=== PATIENT | male | born 1980 | race Caucasian/White ===

== ENCOUNTER 2022-01-31 21:08 | Emergency (ER) | payer MEDICAID ==
[2022-01-31] MEDS ORDERED: oxyCODONE 5 MG Tab PO ONE (21:48)
[2022-01-31] MEDS ORDERED: Iopamidol 755 Mg/ML 75 ML Bottle IVPUSH ONE (22:41)
[2022-01-31] MEDS ORDERED: Sodium Chloride 0.9% 50 ML IV SCH (22:45)
[2022-01-31] MEDS ORDERED: HYDROmorphone 1 MG/ML Syringe IVPUSH ONE (22:46)
[2022-01-31] MEDS ORDERED: Ondansetron 4 MG/2 ML SDV IVPUSH ONE (23:01)
[2022-01-31 23:07] LABS: ANION GAP 14.7 mmol/L (5-15); CHLORIDE,CL 104 mmol/L (98-107); SODIUM,NA 142 mmol/L (136-145)
[2022-01-31 23:08] LABS: ESTIMATED GFR 103 mL/min (>=60)
[2022-01-31] MEDS ORDERED: Acetaminophen/oxyCODONE 325-5 MG Tab PO ONE (23:28)
== END 2022-01-31 23:49 | disposition home or self-care (01) ==
LOC: SUPCPDRO 21:08 → KA.ED 21:08
DX: R10.12 Left upper quadrant pain (principal); Z98.890 Other specified postprocedural states
CPT/HCPCS: 36415; 74177; 80048; 85025; 96374; 96375; 99284; 99284-25; A9270-GY; J1170; J2405; Q9967

== ENCOUNTER 2022-09-06 15:13 | Emergency (ER) | payer MEDICAID ==
[2022-09-06] MEDS ORDERED: Sodium Chloride 0.9% 10 ML Syringe FLUSH PRN (15:43)
[2022-09-06] MEDS ORDERED: Nitroglycerin 2% Oint 1 GM UD Packet TOP ONE (15:46)
[2022-09-06] MEDS ORDERED: Aspirin 81 MG Tab.Chew PO ONE (15:46)
[2022-09-06 16:01] LABS: ANION GAP 9.9 mmol/L (5-15)
== END 2022-09-06 18:05 | disposition home or self-care (01) ==
LOC: KA.ED 15:13
DX: I16.0 Hypertensive urgency (principal); I10 Essential (primary) hypertension; E66.9 Obesity, unspecified; Z68.36 Body mass index [BMI] 36.0-36.9, adult; Z79.899 Other long term (current) drug therapy
CPT/HCPCS: 36415; 71046; 80053; 84484; 85025; 99285; A9270; 93010; 99284

== ENCOUNTER 2022-09-09 18:00 | Emergency (ER) | payer MEDICAID ==
[2022-09-09] MEDS ORDERED: Sodium Chloride 0.9% 10 ML Syringe FLUSH PRN (18:16)
[2022-09-09] MEDS: Labetalol 100 MG/20 ML MDV IVPUSH ONE (18:37)
== END 2022-09-09 19:15 | disposition home or self-care (01) ==
LOC: KA.ED 18:00
DX: I16.0 Hypertensive urgency (principal); E66.9 Obesity, unspecified; Z68.36 Body mass index [BMI] 36.0-36.9, adult; Z79.899 Other long term (current) drug therapy
CPT/HCPCS: 80053; 84484; 85025; 93010; 96374; 99283-25; 99284; J3490

== ENCOUNTER 2022-11-14 07:42 | Emergency (ER) | payer MEDICAID ==
[2022-11-14 08:13] LABS: BASOPHILS ABSOLUTE AUTO 0.01 10^3/uL (0.00-0.10); BASOPHILS PERCENT AUTO 0.1 % (0.0-1.0); EOSINOPHILS ABSOLUTE AUTO 0.11 10^3/uL (0.10-0.30); EOSINOPHILS PERCENT AUTO 0.9 % (1.0-3.0); HEMATOCRIT 50.1 % (40.0-52.0); HEMOGLOBIN 16.9 g/dL (13.0-17.0); IMMATURE GRAN ABSOLUTE AUTO 0.07 10^3/uL (0.00-0.50); IMMATURE GRAN PERCENT AUTO 0.6 % (0.0-5.0); LYMPHOCYTES ABSOLUTE AUTO 2.26 10^3/uL (1.00-4.00); LYMPHOCYTES PERCENT AUTO 18.7 % (20.0-40.0); MEAN CORPUSCULAR HEMOGLOBIN 29.1 pg (27.0-31.0); MEAN CORPUSCULAR HGB CONC 33.7 g/dL (32.0-36.0); MEAN CORPUSCULAR VOLUME 86.4 fL (82.0-92.0); MEAN PLATELET VOLUME 10.9 fL (7.4-10.4); MONOCYTES ABSOLUTE AUTO 0.92 10^3/uL (0.10-0.80); MONOCYTES PERCENT AUTO 7.6 % (2.0-8.0); NEUTROPHILS ABSOLUTE AUTO 8.74 10^3/uL (2.50-7.00); NEUTROPHILS PERCENT AUTO 72.1 % (50.0-70.0); PLATELET COUNT,PLT 204 10^3/uL (150-400); RED CELL DISTRIBUTION WIDTH 12.9 % (11.5-14.5); WHITE BLOOD CELL COUNT,WBC 12.11 10^3/uL (5.00-10.00)
[2022-11-14] MEDS: Sodium Chloride 0.9% 1,000 ML IV ONE (08:15)
[2022-11-14 08:23] LABS: APPEARANCE,URINE CLEAR (CLEAR); BILIRUBIN,URINE NEGATIVE (NEGATIVE); COLOR,URINE YELLOW (YELLOW); GLUCOSE,URINE NEGATIVE (NEGATIVE); KETONES,URINE NEGATIVE (NEGATIVE); LEUKOCYTE ESTERASE,URINE NEGATIVE (NEGATIVE); NITRITE,URINE NEGATIVE (NEGATIVE); OCCULT BLOOD,URINE NEGATIVE (NEGATIVE); PH,URINE 5.5 (5.0-9.0); PROTEIN,URINE NEGATIVE (NEGATIVE); UROBILINOGEN,URINE 0.2 E.U./dL (0.2-1.0)
[2022-11-14 08:29] LABS: ALBUMIN 3.77 g/dL (3.40-5.00); ANION GAP 13.2 mmol/L (5-15); BILIRUBIN TOTAL 0.7 mg/dL (0.2-1.0); CALCIUM 8.9 mg/dL (8.7-10.3); CREATININE 0.74 mg/dL (0.51-1.17); EST CRCL DRUG DOSING (CG) 106.67 mL/min; POTASSIUM,K 4.2 mmol/L (3.5-5.1); PROTEIN TOTAL,TP 7.6 g/dL (6.4-8.2)
[2022-11-14 08:46] LABS: BACTERIA,URINE RARE /HPF (NONE TO FEW); EPITHELIAL CELLS,URINE OCCASIONAL /LPF; MUCUS,URINE FEW /LPF (NEGATIVE); RBC,URINE 0-5 /HPF (0-5); WBC,URINE 0-5 /HPF (0-5)
[2022-11-14 09:02] LABS: AMYLASE 47 U/L (25-125); LIPASE 93 U/L (73-393)
== END 2022-11-14 09:25 | disposition home or self-care (01) ==
LOC: KA.ED 07:42
DX: A05.9 Bacterial foodborne intoxication, unspecified (principal); R10.9 Unspecified abdominal pain; E86.0 Dehydration; R11.2 Nausea with vomiting, unspecified; E78.00 Pure hypercholesterolemia, unspecified; I10 Essential (primary) hypertension; R74.8 Abnormal levels of other serum enzymes; E66.9 Obesity, unspecified; Z86.16 Personal history of COVID-19; Z79.899 Other long term (current) drug therapy; Z68.36 Body mass index [BMI] 36.0-36.9, adult
CPT/HCPCS: 36415; 80053; 81001; 82150; 83690; 85025; 96360; 99284; 99284-25; J7030

== ENCOUNTER 2023-08-09 02:41 | Emergency (ER) | payer MEDICAID ==
[2023-08-09] MEDS: HYDROmorphone 1 MG/ML Syringe IVPUSH ONE ×2 (03:23→04:02)
[2023-08-09] MEDS: Sodium Chloride 0.9% 10 ML Syringe FLUSH PRN (03:31)
[2023-08-09] MEDS: HYDROmorphone 1 MG/ML Syringe ONE (04:36)
[2023-08-09] MEDS: Bisacodyl 10 MG Supp RECTAL ONE (04:44)
[2023-08-09] MEDS: Glycerin 5.4 GM/7.5 ML Suppository RECTAL ONE (04:44)
== END 2023-08-09 05:00 | disposition home or self-care (01) ==
LOC: KA.ED 02:41
DX: K59.00 Constipation, unspecified (principal); K62.9 Disease of anus and rectum, unspecified; I10 Essential (primary) hypertension; E78.00 Pure hypercholesterolemia, unspecified; E66.9 Obesity, unspecified; Z79.899 Other long term (current) drug therapy; Z68.36 Body mass index [BMI] 36.0-36.9, adult
CPT/HCPCS: 96374; 96376; 99283; A9270; J1170; 99284; J3490

== ENCOUNTER 2023-08-20 22:10 | Observation (INO) | payer MEDICAID ==
[2023-08-20] MEDS: Sodium Chloride 0.9% 1,000 ML IV SCH (22:24)
[2023-08-20 22:36] LABS: BASOPHILS ABSOLUTE AUTO 0.02 10^3/uL (0.00-0.10); BASOPHILS PERCENT AUTO 0.2 % (0.0-1.0); EOSINOPHILS ABSOLUTE AUTO 0.16 10^3/uL (0.10-0.30); EOSINOPHILS PERCENT AUTO 1.6 % (1.0-3.0); HEMATOCRIT 48.1 % (40.0-52.0); HEMOGLOBIN 16.3 g/dL (13.0-17.0); IMMATURE GRAN ABSOLUTE AUTO 0.08 10^3/uL (0.00-0.50); IMMATURE GRAN PERCENT AUTO 0.8 % (0.0-5.0); LYMPHOCYTES ABSOLUTE AUTO 2.93 10^3/uL (1.00-4.00); MEAN CORPUSCULAR HEMOGLOBIN 28.7 pg (27.0-31.0); MEAN CORPUSCULAR HGB CONC 33.9 g/dL (32.0-36.0); MEAN CORPUSCULAR VOLUME 84.8 fL (82.0-92.0); MONOCYTES PERCENT AUTO 8.9 % (2.0-8.0); NEUTROPHILS ABSOLUTE AUTO 6.03 10^3/uL (2.50-7.00); NEUTROPHILS PERCENT AUTO 59.5 % (50.0-70.0); PLATELET COUNT,PLT 276 10^3/uL (150-400); RED BLOOD CELL COUNT 5.67 10^6/uL (4.50-6.00); RED CELL DISTRIBUTION WIDTH 12.2 % (11.5-14.5); WHITE BLOOD CELL COUNT,WBC 10.12 10^3/uL (5.00-10.00)
[2023-08-20 22:53] LABS: ALBUMIN 4.01 g/dL (3.40-5.00); ANION GAP 17.6 mmol/L (5-15); BILIRUBIN TOTAL 0.4 mg/dL (0.2-1.0); CARBON DIOXIDE,CO2 27.3 mmol/L (21.0-32.0); CREATININE 0.87 mg/dL (0.51-1.17); EST CRCL DRUG DOSING (CG) 89.78 mL/min; POTASSIUM,K 3.9 mmol/L (3.5-5.1); PROTEIN TOTAL,TP 7.6 g/dL (6.4-8.2)
[2023-08-20 23:03] LABS: APPEARANCE,URINE CLEAR (CLEAR); BILIRUBIN,URINE NEGATIVE (NEGATIVE); COLOR,URINE YELLOW (YELLOW); GLUCOSE,URINE NEGATIVE (NEGATIVE); KETONES,URINE NEGATIVE (NEGATIVE); LEUKOCYTE ESTERASE,URINE NEGATIVE (NEGATIVE); NITRITE,URINE NEGATIVE (NEGATIVE); OCCULT BLOOD,URINE NEGATIVE (NEGATIVE); PH,URINE 5.5 (5.0-9.0); PROTEIN,URINE NEGATIVE (NEGATIVE); UROBILINOGEN,URINE 0.2 E.U./dL (0.2-1.0)
[2023-08-20] MEDS: HYDROmorphone 1 MG/ML Syringe IVPUSH ONE (23:15)
[2023-08-20] MEDS: Sodium Chloride 0.9% 50 ML IV SCH (23:15)
[2023-08-20] MEDS: Ondansetron 4 MG/2 ML SDV IVPUSH ONE (23:15)
[2023-08-20] MEDS: Iopamidol 755 Mg/ML 100 ML Bottle IV ONE (23:15)
[2023-08-21] MEDS: HYDROmorphone 2 MG/ML Syringe IVPUSH ONE (01:57)
[2023-08-21] MEDS ORDERED: Ondansetron 4 MG/2 ML SDV IV PRN (02:29)
[2023-08-21] MEDS ORDERED: Polyethylene Glycol 3350 Powder 17 GM Packet PO PRN (02:29)
[2023-08-21] MEDS ORDERED: Naloxone 0.4 MG/ML SDV IVPUSH PRN (05:11)
[2023-08-21] MEDS: HYDROmorphone 2 MG/ML Syringe IVPUSH PRN (05:40)
[2023-08-21 07:21] LABS: BASOPHILS ABSOLUTE AUTO 0.02 10^3/uL (0.00-0.10); BASOPHILS PERCENT AUTO 0.2 % (0.0-1.0); EOSINOPHILS ABSOLUTE AUTO 0.16 10^3/uL (0.10-0.30); HEMATOCRIT 47.4 % (40.0-52.0); HEMOGLOBIN 15.5 g/dL (13.0-17.0); IMMATURE GRAN ABSOLUTE AUTO 0.07 10^3/uL (0.00-0.50); IMMATURE GRAN PERCENT AUTO 0.9 % (0.0-5.0); LYMPHOCYTES ABSOLUTE AUTO 2.16 10^3/uL (1.00-4.00); LYMPHOCYTES PERCENT AUTO 26.8 % (20.0-40.0); MEAN CORPUSCULAR HEMOGLOBIN 28.5 pg (27.0-31.0); MEAN CORPUSCULAR HGB CONC 32.7 g/dL (32.0-36.0); MEAN CORPUSCULAR VOLUME 87.1 fL (82.0-92.0); MEAN PLATELET VOLUME 10.2 fL (7.4-10.4); MONOCYTES ABSOLUTE AUTO 0.79 10^3/uL (0.10-0.80); MONOCYTES PERCENT AUTO 9.8 % (2.0-8.0); NEUTROPHILS ABSOLUTE AUTO 4.86 10^3/uL (2.50-7.00); NEUTROPHILS PERCENT AUTO 60.3 % (50.0-70.0); PLATELET COUNT,PLT 262 10^3/uL (150-400); RED BLOOD CELL COUNT 5.44 10^6/uL (4.50-6.00); RED CELL DISTRIBUTION WIDTH 12.4 % (11.5-14.5); WHITE BLOOD CELL COUNT,WBC 8.06 10^3/uL (5.00-10.00)
[2023-08-21 07:52] LABS: ANION GAP 12.7 mmol/L (5-15); CALCIUM 9.1 mg/dL (8.7-10.3); CARBON DIOXIDE,CO2 31.8 mmol/L (21.0-32.0); CREATININE 0.91 mg/dL (0.51-1.17); EST CRCL DRUG DOSING (CG) 85.84 mL/min; POTASSIUM,K 4.5 mmol/L (3.5-5.1)
[2023-08-21] MEDS: Omeprazole 20 MG Cap.CR PO SCH (08:07)
[2023-08-21] MEDS: HYDROmorphone 1 MG/ML Syringe IVPUSH PRN (08:47)
[2023-08-21] MEDS ORDERED: Lisinopril 10 MG Tab PO SCH (09:00)
[2023-08-21] MEDS ORDERED: Non-Formulary Medication 1 Each (Cyanocobalamin (Vitamin B-12) [Vitamin B-12] 100 MCG Tabl PO SCH (09:00)
[2023-08-21] MEDS ORDERED: amLODIPine 5 MG Tab PO SCH (09:00)
[2023-08-21] MEDS: Ketorolac 30 MG/ML SDV IVPUSH PRN (11:29)
[2023-08-21] MEDS: Sennosides/Docusate Sodium 50-8.6 MG Tab PO SCH (11:29)
[2023-08-21 16:28] LABS: HEMATOCRIT 43.9 % (40.0-52.0); HEMOGLOBIN 14.7 g/dL (13.0-17.0)
[2023-08-22 07:42] LABS: HEMATOCRIT 46.7 % (40.0-52.0); HEMOGLOBIN 15.4 g/dL (13.0-17.0); MEAN CORPUSCULAR HEMOGLOBIN 28.6 pg (27.0-31.0); MEAN CORPUSCULAR VOLUME 86.6 fL (82.0-92.0); MEAN PLATELET VOLUME 9.8 fL (7.4-10.4); PLATELET COUNT,PLT 257 10^3/uL (150-400); RED BLOOD CELL COUNT 5.39 10^6/uL (4.50-6.00); RED CELL DISTRIBUTION WIDTH 12.3 % (11.5-14.5); WHITE BLOOD CELL COUNT,WBC 8.88 10^3/uL (5.00-10.00)
[2023-08-22 07:56] LABS: ALBUMIN 3.65 g/dL (3.40-5.00); ANION GAP 11.2 mmol/L (5-15); BILIRUBIN TOTAL 0.5 mg/dL (0.2-1.0); CALCIUM 9.1 mg/dL (8.7-10.3); CARBON DIOXIDE,CO2 31.1 mmol/L (21.0-32.0); CREATININE 0.8 mg/dL (0.51-1.17); EST CRCL DRUG DOSING (CG) 97.64 mL/min; POTASSIUM,K 4.3 mmol/L (3.5-5.1); PROTEIN TOTAL,TP 7.1 g/dL (6.4-8.2)
== END 2023-08-22 11:46 | disposition home or self-care (01) ==
LOC: KA.ED 22:10 → KA.MS 23:56
PROVIDERS: ADMIT Internal Medicine; ATTEND Internal Medicine
DX: K62.5 Hemorrhage of anus and rectum (principal); R10.9 Unspecified abdominal pain; K21.9 Gastro-esophageal reflux disease without esophagitis; K64.9 Unspecified hemorrhoids; K42.9 Umbilical hernia without obstruction or gangrene; I10 Essential (primary) hypertension; K62.89 Other specified diseases of anus and rectum; I82.409 Acute embolism and thrombosis of unspecified deep veins of unspecified lower extremity; Z79.899 Other long term (current) drug therapy
CPT/HCPCS: 36415; 74177; 80048; 80053; 81003; 85014; 85018; 85025; 85027; 96361; 96374; 96375; 96376; 99285-25; A9270-GY; G0378; J1170; J1885; J2405; J3490; J7030; Q3014; Q9967

== ENCOUNTER 2023-08-27 18:33 | Emergency (ER) | payer MEDICAID ==
[2023-08-27 19:01] LABS: BASOPHILS ABSOLUTE AUTO 0.01 10^3/uL (0.00-0.10); BASOPHILS PERCENT AUTO 0.1 % (0.0-1.0); EOSINOPHILS ABSOLUTE AUTO 0.17 10^3/uL (0.10-0.30); HEMATOCRIT 44.9 % (40.0-52.0); IMMATURE GRAN ABSOLUTE AUTO 0.05 10^3/uL (0.00-0.50); IMMATURE GRAN PERCENT AUTO 0.6 % (0.0-5.0); LYMPHOCYTES ABSOLUTE AUTO 2.45 10^3/uL (1.00-4.00); LYMPHOCYTES PERCENT AUTO 28.5 % (20.0-40.0); MEAN CORPUSCULAR HEMOGLOBIN 28.9 pg (27.0-31.0); MEAN CORPUSCULAR HGB CONC 33.4 g/dL (32.0-36.0); MEAN CORPUSCULAR VOLUME 86.5 fL (82.0-92.0); MEAN PLATELET VOLUME 10.3 fL (7.4-10.4); MONOCYTES ABSOLUTE AUTO 0.66 10^3/uL (0.10-0.80); MONOCYTES PERCENT AUTO 7.7 % (2.0-8.0); NEUTROPHILS ABSOLUTE AUTO 5.26 10^3/uL (2.50-7.00); NEUTROPHILS PERCENT AUTO 61.1 % (50.0-70.0); PLATELET COUNT,PLT 252 10^3/uL (150-400); RED BLOOD CELL COUNT 5.19 10^6/uL (4.50-6.00); RED CELL DISTRIBUTION WIDTH 12.5 % (11.5-14.5)
[2023-08-27 19:17] LABS: ALBUMIN 3.66 g/dL (3.40-5.00); ANION GAP 13.1 mmol/L (5-15); BILIRUBIN TOTAL 0.4 mg/dL (0.2-1.0); CALCIUM 8.5 mg/dL (8.7-10.3); CARBON DIOXIDE,CO2 28.6 mmol/L (21.0-32.0); CREATININE 0.87 mg/dL (0.51-1.17); EST CRCL DRUG DOSING (CG) 89.78 mL/min; POTASSIUM,K 3.7 mmol/L (3.5-5.1); PROTEIN TOTAL,TP 6.9 g/dL (6.4-8.2)
[2023-08-27] MEDS: Sodium Chloride 0.9% 10 ML Syringe FLUSH PRN (19:18)
[2023-08-27] MEDS: Sodium Chloride 0.9% 1,000 ML IV ONE (19:21)
== END 2023-08-27 20:34 | disposition home or self-care (01) ==
LOC: KA.ED 18:33
DX: K92.1 Melena (principal); R42 Dizziness and giddiness; I10 Essential (primary) hypertension; K21.9 Gastro-esophageal reflux disease without esophagitis; E66.9 Obesity, unspecified; Z90.49 Acquired absence of other specified parts of digestive tract; Z86.16 Personal history of COVID-19; Z79.899 Other long term (current) drug therapy; Z68.36 Body mass index [BMI] 36.0-36.9, adult
CPT/HCPCS: 80053; 83605; 85025; 96360; 99284-25; J3490; J7030

== ENCOUNTER 2023-09-04 20:14 | Emergency (ER) | payer MEDICAID ==
[2023-09-04 20:43] LABS: BASOPHILS ABSOLUTE AUTO 0.02 10^3/uL (0.00-0.10); BASOPHILS PERCENT AUTO 0.2 % (0.0-1.0); EOSINOPHILS ABSOLUTE AUTO 0.27 10^3/uL (0.10-0.30); EOSINOPHILS PERCENT AUTO 3.3 % (1.0-3.0); HEMATOCRIT 43.8 % (40.0-52.0); HEMOGLOBIN 14.9 g/dL (13.0-17.0); IMMATURE GRAN ABSOLUTE AUTO 0.07 10^3/uL (0.00-0.50); IMMATURE GRAN PERCENT AUTO 0.9 % (0.0-5.0); LYMPHOCYTES ABSOLUTE AUTO 2.54 10^3/uL (1.00-4.00); LYMPHOCYTES PERCENT AUTO 31.5 % (20.0-40.0); MEAN CORPUSCULAR HEMOGLOBIN 29.2 pg (27.0-31.0); MEAN CORPUSCULAR VOLUME 85.7 fL (82.0-92.0); MEAN PLATELET VOLUME 10.4 fL (7.4-10.4); MONOCYTES ABSOLUTE AUTO 0.57 10^3/uL (0.10-0.80); MONOCYTES PERCENT AUTO 7.1 % (2.0-8.0); PLATELET COUNT,PLT 213 10^3/uL (150-400); RED BLOOD CELL COUNT 5.11 10^6/uL (4.50-6.00); RED CELL DISTRIBUTION WIDTH 12.6 % (11.5-14.5); WHITE BLOOD CELL COUNT,WBC 8.07 10^3/uL (5.00-10.00)
[2023-09-04 20:57] LABS: ANION GAP 13.6 mmol/L (5-15); CALCIUM 8.6 mg/dL (8.7-10.3); CARBON DIOXIDE,CO2 28.8 mmol/L (21.0-32.0); CREATININE 0.84 mg/dL (0.51-1.17); EST CRCL DRUG DOSING (CG) 92.99 mL/min; POTASSIUM,K 3.4 mmol/L (3.5-5.1)
[2023-09-04] MEDS: Famotidine 20 MG Tab PO ONE (21:40)
[2023-09-04] MEDS: Pantoprazole 40 MG Tab.CR PO ONE (21:41)
[2023-09-04] MEDS: Ondansetron 4 MG Tab.DIS PO ONE (21:41)
[2023-09-04] MEDS: Calcium Carbonate 500 MG Tab.Chew PO ONE (21:41)
== END 2023-09-04 22:00 | disposition home or self-care (01) ==
LOC: KA.ED 20:14
DX: R10.13 Epigastric pain (principal); I10 Essential (primary) hypertension; K21.9 Gastro-esophageal reflux disease without esophagitis; E66.9 Obesity, unspecified; Z68.35 Body mass index [BMI] 35.0-35.9, adult; Z86.16 Personal history of COVID-19; Z48.815 Encounter for surgical aftercare following surgery on the digestive system; Z79.899 Other long term (current) drug therapy; Z90.49 Acquired absence of other specified parts of digestive tract
CPT/HCPCS: 36415; 74018; 80048; 85025; 99284; A9270

== ENCOUNTER 2023-11-15 21:22 | Emergency (ER) | payer MEDICAID ==
[2023-11-15] MEDS: Acetaminophen/HYDROcodone 325-10 MG Tab PO ONE (22:17)
== END 2023-11-15 22:22 | disposition home or self-care (01) ==
LOC: SUPCPDRO 21:22 → KA.ED 21:22
DX: K91.840 Postprocedural hemorrhage of a digestive system organ or structure following a digestive system procedure (principal); I10 Essential (primary) hypertension; E78.00 Pure hypercholesterolemia, unspecified; K21.9 Gastro-esophageal reflux disease without esophagitis; Z87.19 Personal history of other diseases of the digestive system; Z98.890 Other specified postprocedural states; Z79.899 Other long term (current) drug therapy; Z86.16 Personal history of COVID-19; Z90.49 Acquired absence of other specified parts of digestive tract
CPT/HCPCS: 99283; 99284; A9270-GY